=== PATIENT | male | born 1965 | race Caucasian/White ===

== ENCOUNTER 2017-10-21 02:13 | Emergency (ER) | payer BC ==
[~2017-10-21] VITALS: Ht 170.2 cm; Wt 83.9 kg
[~2017-10-21 02:13] MED LIST: CEPH500 PO; FLUC150A PO; IBUP600; IBUP600 PO; PROACE100 PO; RXPROACE PO; SULTRIDS PO
[2017-10-21] MEDS ORDERED: METFORMIN (02:33)
[2017-10-21] MEDS ORDERED: GLIPIZIDE (02:33)
[2017-10-21] MEDS ORDERED: IBUP600 PO (03:17)
== END 2017-10-21 03:30 | disposition home or self-care (01) ==
LOC: ER 02:13
DX: M25.562 Pain in left knee (principal); E11.9 Type 2 diabetes mellitus without complications; Z88.5 Allergy status to narcotic agent; Z79.84 Long term (current) use of oral hypoglycemic drugs; Z79.899 Other long term (current) drug therapy
CPT/HCPCS: 73562-LT; 99283